=== PATIENT | female | born 2005 | race Two or more races ===

== ENCOUNTER 2025-01-15 17:44 | Emergency (ER) | payer OTHER, SELFPAY ==
[2025-01-15 17:53] VITALS: BP 121/72; PULSE 97; RESP 18; TEMP 36.8; O2SAT 99; BMI 28.7
--- NOTE | 2025-01-15 17:59 | ED.GENADULT ---
HPI - General Adult General Chief complaint: General Medical Stated complaint: bumps right leg Time Seen by Provider: 01/15/25 18:38 Source: patient, family (sister), RN notes reviewed, old records reviewed and official court interpreter Mode of arrival: ambulatory Limitations: language barrier History of Present Illness ED Provider: Ravin HPI narrative: 19-year-old female with no significant past medical history presents for evaluation of a rash to her right lower leg. She has several red, painful bumps to her right lower leg. They 1st started 2 days ago but have gotten larger and more painful. They were initially itchy She is not a diabetic Denies any fevers, chills. The pain is only to her banuelos, no pain to her calf Related Data Previous Rx's ?Medication ?Instructions ?Recorded doxycycline hyclate 100 mg tablet 100 mg PO BID #14 tabs 01/15/25 Allergies Allergy/AdvReac Type Severity Reaction Status Date / Time No Known Allergies Allergy Verified 01/15/25 17:59 Review of Systems Constitutional: Constitutional: Denies body ache(s), Denies chills, Denies fever(s) and Denies headache(s) ENT: Denies headache(s) Musculoskeletal: Musculoskeletal: Denies arthralgias, Denies joint swelling and Denies limited range of motion Integumentary/Breasts: Skin/Breast: Reports erythema and Reports rash Neurologic: Denies headache(s) PMFSH Social History Social History Advance Directives: No Advance Directives Information Provided: No Do you have a plan to hurt others: No Plan Physical Exam ED Vital Signs: Vital Signs - 24 hr 01/15/25 17:53 01/15/25 19:22 Temperature 98.2 F 98.2 F Pulse Rate 97 97 Respiratory Rate 18 18 Blood Pressure 121/72 121/72 Pulse Oximetry 99 99 Oxygen Delivery Method Room Air Room Air BMI result Body Mass Index 28.7 Const General: healthy appearing, comfortable, no acute distress, alert and awake Nutritional Appearance: well nourished Orientation/consciousness: patient oriented x3 HENMT Head: Yes normocephalic and Yes atraumatic Eyes Eyelids: Yes eyelids normal Conjunctivae: conjunctivae normal Sclerae: sclerae normal Corneas: corneas normal Pupils: Equal, round and reactive pupils present EOM: EOMs intact bilaterally Neck Neck: Yes full ROM Resp Effort & Inspection: normal respiratory effort, able to speak in complete sentences and not labored Skin Other: Several scattered, fluid-filled vesicles to the right banuelos with an erythematous base. General skin exam: elasticity normal Neuro General: patient oriented x3 Cranial nerves: Yes Equal, round and reactive pupils present and Yes Bilaterally intact EOM present Cognition (Neuro): normal cognition Extrem Other: Moving all extremities well without any obvious deformities Course Course Course Narrative: RME, this is a rapid medical exam performed by Poncho Alicia please refer to primary provider for complete H&P- 19-year-old female presents for evaluation of a rash to her right leg. It started as red little blisters. She appears to have the rash only in the right lower leg. She states that she had chickenpox when she was 10 years old. Plan for basic labs Medical Decision Making Medical Decision Making [facility] Narrative: Patient has a small red rash with fluid-filled pustules to the right banuelos. Upon further history, the symptoms started the day after she shaved her legs and was riding on a public bus with her legs exposed. In his likely that she was exposed to a staph infection and therefore we will treat with doxycycline. No calf tenderness or edema to suggest DVT. The patient has already been exposed to chickenpox. This is not a classic presentation of shingles Differential Diagnosis Differential Diagnoses: The differential diagnosis associated with the presentation includes Folliculitis Cellulitis Varicella zoster Herpes zoster Lab Data 01/15/25 18:21 01/15/25 18:21 Labs: Lab Results 01/15/25 Range/Units 18:21 WBC 9.7 (4.8-10.8) X10*3/uL RBC 4.14 L (4.20-5.50) X10*6/uL Hgb 13.3 (12.0-16.0) g/dl Hct 38.4 (37.0-47.0) % MCV 92.8 (80.0-98.0) fL MCH 32.1 (27.0-33.0) pg MCHC 34.6 (31.0-35.0) g/dl RDW 11.6 (11.0-16.0) % Plt Count 304 (160-400) X10*3/uL MPV 9.9 (9.4-12.3) fL Immature Gran % (Auto) 0.3 (0.0-0.4) % Neut % (Auto) 58.3 (45-73) % Lymph % (Auto) 28.5 (20-40) % [place] % (Auto) 10.7 (2-11) % Eos % (Auto) 1.8 (0-4) % Baso % (Auto) 0.4 (0-2) % Lymph # (Auto) 2.8 (1.2-4.9) X10*3/uL [place] # (Auto) 1.0 (0.1-1.2) X10*3/uL Eos # (Auto) 0.2 (0.0-0.4) X10*3/uL Baso # (Auto) 0.0 (0.0-0.2) X10*3/uL Abs Immat Gran (auto) 0.03 (0.00-0.03) X10*3/uL Absolute Neuts (auto) 5.7 (2.0-8.3) x10*3/uL Absolute Nucleated RBC 0.000 (0.0-0.012) X10*3/uL Nucleated RBC % (auto) 0.0 (0.0-0.2) /100WBC Sodium 140 (135-145) mmol/L Potassium 4.2 (3.3-5.1) mmol/L Chloride 108 (96-108) mmol/L Carbon Dioxide 25 (22-29) mmol/L Anion Gap 11 L (12-20) BUN 10 (9-16) mg/dL Creatinine 0.61 (0.5-1.4) mg/dL Estim Creat Clear Calc 130.4 Estimated GFR > 60 Random Glucose 92 (60-115) mg/dL Calcium 9.0 (8.4-10.2) mg/dL Beta HCG, Quant < 2 mIU/mL Discharge Plan Discharge Clinical Impression: Folliculitis Patient Disposition: Home, Self-Care Instructions: Folliculitis (ED) Additional Instructions: You may apply topical antibiotic. I recommend that you try to not pop the vesicles or pustules. Take the doxycycline twice daily for 1 week Wash her hands frequently I recommend that you do not shave your legs until the rash is gone Prescriptions: New doxycycline hyclate 100 mg tablet 100 mg PO BID Qty: 14 0RF Interventions: ED Discharge Assessment Last Done: 01/15/25 19:22 Discharge Date/Time: 01/15/25 19:26 Print Language: Green[place]ic
[2025-01-15 18:33] LABS: MANUAL DIFF FLAG NO
[2025-01-15 18:36] LABS: Hematocrit 38.4 % (37.0-47.0); Hemoglobin 13.3 g/dl (12.0-16.0); Imm Gran Abs Auto 0.03 X10*3/uL (0.00-0.03); Imm Gran Pct Auto 0.3 % (0.0-0.4); Lymphocytes Absolute Auto 2.8 X10*3/uL (1.2-4.9); Mean Corpuscular HGB Conc 34.6 g/dl (31.0-35.0); Mean Corpuscular Hemoglobin 32.1 pg (27.0-33.0); Mean Corpuscular Volume 92.8 fL (80.0-98.0); NRBC Abs Auto 0.000 X10*3/uL (0.0-0.012); NRBC Pct Auto 0.0 /100WBC (0.0-0.2); Platelet Count 304 X10*3/uL (160-400); Red Blood Count 4.14 X10*6/uL (4.20-5.50); White Blood Count 9.7 X10*3/uL (4.8-10.8)
[2025-01-15 18:52] LABS: Anion Gap 11 (12-20); Blood Urea Nitrogen 10 mg/dL (9-16); Calcium 9.0 mg/dL (8.4-10.2); Carbon Dioxide 25 mmol/L (22-29); Chloride 108 mmol/L (96-108); Creatinine Clr Calc Pharmacy 130.4; Estimated Glomerular Filt Rate > 60; Potassium 4.2 mmol/L (3.3-5.1); Sodium 140 mmol/L (135-145)
[2025-01-15 19:22] VITALS: BP 121/72; PULSE 97; RESP 18; TEMP 36.8; O2SAT 99
== END 2025-01-15 19:26 | disposition home or self-care (01) ==
PROVIDERS: Physician Assistant; Emergency Provider Internal Medicine
DX: L73.9 Follicular disorder, unspecified (principal); R21 Rash and other nonspecific skin eruption
CPT/HCPCS: 36415; 80048; 84702; 85025; 99282; 99283